=== PATIENT | female | born 1940 | race Caucasian/White ===

== ENCOUNTER 2018-07-24 11:00 | Emergency (ER) | payer OTHER ==
[~2018-07-24] VITALS: Ht 162.6 cm; Wt 56.7 kg
[~2018-07-24 11:00] MED LIST: CITA20SO PO; ESOM40CA25 PO; HYDR-2761; HYDR-2761 PO; OLME40TA12 PO; SIMV40TA3 PO; ZOLP5TAB5 PO
[2018-07-24 11:10] VITALS: BP 139/84
--- NOTE | 2018-07-24 11:39 | PHYS DOC ---
Adult General Chief Complaint Chief Complaint: Headache HPI HPI Patient is a 77 year old female presented ER today for evaluation of bilateral temporal headache associated with some nausea for the last 3 days. Patient denies any fever, no neck pain, no neck stiffness. Patient had no history of fevers headaches like this in the past patient denies any blurry vision, no chest pain, no abdominal pain. Patient denies any recent head trauma. Patient went to [facility] ER yesterday, they could not do a CT scan of her head so they told to come here for evaluation. She denies any weakness or numbness anywhere. Review of Systems Review of Systems Constitutional: Denies fever or chills [] Eyes: Denies change in visual acuity, redness, or eye pain [] HENT: Denies nasal congestion or sore throat [] Respiratory: Denies cough or shortness of breath [] Cardiovascular: No additional information not addressed in HPI [] GI: Denies abdominal pain, nausea, vomiting, bloody stools or diarrhea [] : Denies dysuria or hematuria [] Musculoskeletal: Denies back pain or joint pain [] Integument: Denies rash or skin lesions [] Neurologic: Positive for headache, NO focal weakness or sensory changes [] Endocrine: Denies polyuria or polydipsia [] All other systems were reviewed and found to be within normal limits, except as documented in this note. Allergies Allergies Allergies Coded Allergies Type Severity Reaction Last Updated Verified Sulfa (Sulfonamide Antibiotics) Allergy Intermediate Rash 12/13/13 Yes tetracycline Allergy Intermediate rash 12/13/13 Yes Physical Exam Physical Exam Constitutional: Well developed, well nourished, no acute distress, non-toxic appearance. [] HENT: Normocephalic, atraumatic, bilateral external ears normal, oropharynx moist, no oral exudates, nose normal. [] Eyes: PERRLA, EOMI, conjunctiva normal, no discharge. [] Neck: Normal range of motion, no tenderness, supple, no stridor. [] Cardiovascular:Heart rate regular rhythm, no murmur [] Lungs & Thorax: Bilateral breath sounds clear to auscultation [] Abdomen: Bowel sounds normal, soft, no tenderness, no masses, no pulsatile masses. [] Skin: Warm, dry, no erythema, no rash. [] Back: No tenderness, no CVA tenderness. [] Extremities: No tenderness, no cyanosis, no clubbing, ROM intact, no edema. [] Neurologic: Alert and oriented X 3, normal motor function, normal sensory function, no focal deficits noted. [] Psychologic: Affect normal, judgement normal, mood normal. [] Current Patient Data Vital Signs Vital Signs Date Time Temp Pulse Resp B/P (MAP) Pulse Ox O2 Delivery O2 Flow Rate FiO2 07/24/18 11:10 97.7 71 18 139/84 (102) 97 Room Air 97.7 EKG EKG [] Radiology/Procedures Radiology/Procedures [][facility] [address] [place] [address] IMAGING REPORT Signed PATIENT: YUNIEL CANO ACCOUNT: [id number] : 1940 LOCATION: ER AGE: 77 SEX: F EXAM STATUS: PRE ER ORD. PHYSICIAN: ROSALBA AGUDELO DO REASON: HEADACHE PROCEDURE: CT HEAD WO CONTRAST Head CT without contrast History:HEADACHE Technique: Noncontrast CT imaging was acquired of the head. PQRS Compliance Statement: One or more of the following individualized dose reduction techniques were utilized for this examination: 1. Automated exposure control 2. Adjustment of the mA and/or kV according to patient size 3. Use of iterative reconstruction technique Comparison: 10/12/2012 Findings: Ventricular size is proportionate to the sulcal spaces. There is mild to moderate supratentorial atrophy.There is no significant mass-effect, midline shift, or abnormal extra-axial fluid collection. There is no evidence of acute parenchymal or extraaxial hemorrhage. The visualized paranasal sinuses and mastoid air cells are aerated. No significant osseous abnormality is identified. Impression: There is no evidence of an acute intracranial abnormality. DICTATED and SIGNED BY: KIMBERLY GALLEGOS MD DATE: 07/24/18 1216 Course & Med Decision Making Course & Med Decision Making Pertinent Labs and Imaging studies reviewed. (See chart for details) Patient did not want to wait for result of her urine or CT head report. She left with her before she was given discharge instruction. Dragon Disclaimer Dragon Disclaimer This electronic medical record was generated, in whole or in part, using a voice recognition dictation system. Departure Departure Impression: Primary Impression: Headache Disposition: HOME, SELF-CARE Condition: IMPROVED Referrals: JULIA SHEETS MD (PCP) follow up with your doctor for further evaluation next week with MRI of your brain. Patient Instructions: General Headache Without Cause ROSALBA AGUDELO DO Jul 24, 2018 11:38
--- NOTE | 2018-07-24 12:20 | RAD ---
Head CT without contrast History:HEADACHE Technique: Noncontrast CT imaging was acquired of the head. RS Compliance Statement: One or more of the following individualized dose reduction techniques were utilized for this examination: 1. Automated exposure control 2. Adjustment of the mA and/or kV according to patient size 3. Use of iterative reconstruction technique Comparison: 10/12/2012 Findings: Ventricular size is proportionate to the sulcal spaces. There is mild to moderate supratentorial atrophy.There is no significant mass-effect, midline shift, or abnormal extra-axial fluid collection. There is no evidence of acute parenchymal or extraaxial hemorrhage. The visualized paranasal sinuses and mastoid air cells are aerated. No significant osseous abnormality is identified. Impression: There is no evidence of an acute intracranial abnormality.
[2018-07-24 12:35] LABS: BILIRUBIN,URINE NEGATIVE (NEG); CLARITY,URINE CLEAR; COLOR,URINE YELLOW; NITRITE,URINE NEGATIVE (NEG); PROTEIN,URINE NEGATIVE (NEG-TRACE); UROBILINOGEN,URINE 0.2 mg/dL (0.2 mg/dL)
[2018-07-24 12:48] LABS: SQUAMOUS EPITHELIAL CELL,UR MOD /LPF
[2018-07-24 12:49] LABS: BACTERIA,URINE 0 /HPF (0-FEW)
== END 2018-07-24 12:25 | disposition home or self-care (01) ==
LOC: ER 11:00
DX: R51 Headache (principal); R11.0 Nausea; Z88.2 Allergy status to sulfonamides; Z88.1 Allergy status to other antibiotic agents
CPT/HCPCS: 70450; 81001; 87086; 87186; 99285-25